=== PATIENT | female | born 1955 | race Caucasian/White ===

== ENCOUNTER 2019-01-16 20:59 | Inpatient (IN) ==
[2019-01-16 23:20] LABS: URINE SOURCE CLEAN CATCH
[2019-01-16 23:26] LABS: BILIRUBIN URINE NEGATIVE (NEGATIVE); BLOOD URINE NEGATIVE (NEGATIVE); COLOR YELLOW; GLUCOSE URINE NEGATIVE (NEGATIVE); KETONE URINE 10 mg/dL (NEGATIVE); LEUKOCYTES URINE NEGATIVE (NEGATIVE); NITRITE URINE NEGATIVE (NEGATIVE); PH URINE 5.5; PROTEIN URINE TRACE mg/dL (NEGATIVE); SP GRAVITY URINE 1.022; TURBIDITY URINE HAZY (CLEAR); UROBILINOGEN URINE 2 mg/dL (NORMAL)
[2019-01-16 23:30] LABS: BASO# 0.11 X1000 (0.0-0.2); BASO% 1.7 % (0.0-0.8); EOS# 0.17 X1000 (0.0-0.7); EOS% 2.7 % (0.0-10.0); HEMATOCRIT 26.2 % (37.0-47.0); HEMOGLOBIN 8.9 g/dL (12.0-16.0); LYMPH# 1.93 X1000 (1.2-3.4); LYMPH% 30.6 % (20.5-51.1); MCH 34.5 PG (27-31); MCV 101.6 FL (81-99); MONO# 0.75 X1000 (0.11-0.59); MONO% 11.9 % (1.7-9.3); MPV 10.2 FL (7.4-10.4); NEUT# 3.34 X1000 (1.4-6.5); NEUT% 53.1 % (42.2-75.2); PLT 112 X1000 (130-400); RBC 2.58 XMIL (4.2-5.4)
[2019-01-16 23:31] LABS: UR EPITHELIAL CELLS <10 /HPF (<10); URINE BACTERIA NEGATIVE /HPF; URINE RBC <10 /HPF (<10); URINE WBC <10 /HPF (<10)
[2019-01-16 23:33] LABS: INR 1.74; PROTIME 20.7 Seconds (11.0-16.0)
[2019-01-16 23:34] LABS: PTT 47.2 Seconds (22.3-41.8)
[2019-01-16 23:43] LABS: URINE CASTS NONE SEEN; URINE CRYSTALS NONE SEEN; URINE SMALL ROUND CELLS NONE SEEN; URINE YEAST PRESENT
[2019-01-17 00:12] LABS: AGAP 13; ALB/GLOB RATIO 0.7; ALBUMIN 3.1 g/dL (3.5-5.0); ALKALINE PHOSPHATASE 105 U/L (32-104); BUN 14 mg/dL (8-22); CALCIUM 8.3 mg/dL (8.8-10.2); CHLORIDE 96 mmol/L (98-107); COSMO 260; CREATININE 0.6 mg/dL (0.5-0.9); ESTIMATED GFR > 60; GLUCOSE 118 mg/dL (70-104); GOT 99 U/L (10-30); GPT 38 U/L (10-36); LIPASE 84 U/L (13-60); POTASSIUM 4.8 mmol/L (3.5-5.1); SODIUM 129 mmol/L (136-145); TCO2 20 mmol/L (25-35); TOTAL BILIRUBIN 1.91 mg/dL (0.20-1.00); TOTAL PROTEIN 7.5 g/dL (6.3-8.3)
[2019-01-17 00:25] LABS: UR AMPHETAMINES QUAL PRESUMPTIVE POSITIVE (NONE DETECT); UR BARBITUATES QUAL NONE DETECTED (NONE DETECT); UR BENZODIAZEPIN QUAL NONE DETECTED (NONE DETECT); UR CANNABINOIDS QUAL NONE DETECTED (NONE DETECT); UR COCAINE QUAL NONE DETECTED (NONE DETECT); UR METHADONE QUAL NONE DETECTED (NONE DETECT); UR OPIATES QUAL NONE DETECTED (NONE DETECT); UR OXYCODONE QUAL NONE DETECTED (NONE DETECT); UR PCP QUAL NONE DETECTED (NONE DETECT)
--- NOTE | 2019-01-17 00:28 | PROVIDER DOCUMENTATION ---
This chart was entered by Jessica Kang Scribe, acting as scribe for Andreina Davenport MD. HPI-Abdominal Pain/GI Problem - General Chief Complaint: Nausea/Vomiting Stated Complaint: VOMITING BLOOD Time Seen by Provider: 01/16/19 21:39 Source: patient Allergies/Adverse Reactions: Patient Allergies Allergy/AdvReac Type Severity Reaction Status Date / Time codeine [Codeine] Allergy Mild RASH Verified 02/22/12 12:59 Penicillins Allergy Mild RASH Verified 02/22/12 13:00 Sulfa (Sulfonamide Allergy Mild RASH Verified 02/22/12 13:00 Antibiotics) [Sulfa(Sulfonamide Antibiotics)] Home Medications: Home Medication List Medication Instructions Recorded Confirmed Last Taken Type LISINOpril [Prinivil] 20 mg PO DAILY 01/17/19 01/17/19 Unknown History - History of Present Illness-ABD Nature of Presenting Problems: pt is a 63 yr old female presenting with 2 week complaint of diffuse abdominal pain, nausea and vomiting. pt reports today she began vomiting blood. pt also complains of itchy, painful rash to upper body x 9months. Abdominal Pain Onset Location: reports: generalized abdomen Pain Radiation: reports: no radiation Quality of Pain: reports: aching Severity in ED: reports: moderate Onset/Duration: reports: other (2weeks) Timing: reports: changing over time Activities at Onset: reports: light activity Exposure to sick contacts?: No Modifying Factors: improves with: coughing (induces vomiting), eating (worsens abdominal pain) Associated Symptoms: reports: cough, nausea, rash, vomiting. denies: fever/chills Last BM: unsure Dark Stools Present?: reports: none noticed Rectal Bleeding: reports: none Rectal Pain: reports: none # of Vomiting Episodes: 5 Emesis Description: reports: red blood Bruising or Bleeding Gums?: No Similar Symptoms Previously?: No Recently seen or treated by another doctor?: No Review of Systems - Adult - REVIEW OF SYSTEMS - ADULT Constitutional: denies: fever, fatique Eyes: reports: no symptoms reported Ears, Nose, Mouth & Throat: reports: no symptoms reported Cardiovascular: denies: chest pain, palpitations, syncope Respiratory: reports: cough. denies: shortness of breath Gastrointestinal: reports: abdominal pain, hematemesis, nausea, vomiting. denies: diarrhea Genitourinary: denies: dysuria, frequency, flank pain Musculoskeletal: reports: no symptoms reported Integumentary: reports: no symptoms reported Neurological: denies: dizziness/vertigo, headache/migraines Psychiatric: reports: no symptoms reported Endocrine: reports: no symptoms reported Hematologic/Lymphatic: reports: no symptoms reported Allergic/Immunologic: reports: no symptoms reported All Other Systems: Reviewed and Negative Past History - Adult - PAST MEDICAL HISTORY-ADULT Review of Records: reports: Nursing Assessment Review, Medications Reviewed, Social history reviewed & non-contributory. Major Childhood Illnesses: reports: denies history Cardiovascular: reports: denies history Respiratory: reports: denies history Gastrointestinal: reports: denies history Obstetrical/Gynecological: reports: denies history Genitourinary: reports: denies history Musculoskeletal: reports: denies history Neurological: reports: denies history Endocrine/Immune: reports: denies history Other Conditions: reports: denies history - IMMUNIZATION STATUS Childhood Immunizations: See Nurse Assessment Flu Vaccine: See Nurse Assessment - FAMILY HISTORY Family History: reviewed, not pertinent - SOCIAL HISTORY Living Situation: family Physical Exam-General - PHYSICAL EXAM-ADULT Initial Vital Signs Reviewed: Yes - CONSTITUTIONAL General Appearance: appears well, alert, no apparent distress - EYES Eyes: PERRL/EOMI - HEAD, EARS, NOSE, MOUTH & THROAT HENMT: normocephalic/atraumatic, moist mucous membranes, dental decay - NECK Neck: non-tender, full range of motion, supple, normal inspection - RESPIRATORY Respiratory: chest non-tender, lungs clear, normal breath sounds - CARDIOVASCULAR Cardiovascular: normal peripheral pulses, tachycardia - GASTROINTESTINAL (ABDOMEN) Abdominal Exam: normal bowel sounds, non tender, soft - LYMPHATIC Lymphatic: no adenopathy - MUSCULOSKELETAL Back Exam: normal inspection, no CVA tenderness, no vertebral tenderness Extremity: normal range of motion, non-tender, normal gait, normal inspection - SKIN Integumentary: normal color, normal turgor, warm/dry - NEUROLOGIC Neurologic: grossly normal, no motor/sensory deficits - PSYCHIATRIC Psych/Mental Status: normal mood/affect Progress - PLAN OF CARE/RESULTS Progress/Plan/Lab Results: Vital Signs - 8 hr 01/16/19 21:13 Temperature 97.6 F Pulse Rate 124 H Respiratory Rate 18 Blood Pressure 90/55 O2 Sat by Pulse Oximetry 98 Patient with multiple different complaints but mostly with complaints of abd pain. CT showing multiple different problems includes concerns for colitis that is either pseudomembranous or infalmmartory. Also has possible cholecytisis with liver involvement. Transaminitis on labs. She has had a few episodes of dark bloody vomiting in the ED. Unknwon cause for this. Hgb is 8.9. I am unsure if this is new or chronic but given hematemesis today will admit. SPoke to Dr Donald hearing aid consultant for hospitalist who accepted patient for admission. Further orders to be placed by their team. Result Diagrams: 01/16/19 23:04 01/16/19 23:04 - CT/MRI 1 CT Study: Abdomen, Pelvis, Thorax Impression: See EMR Report - CONSULTS/PCP/HOSPITALIST Notification #1 *Consult/PCP/Hospitalist*: Dr Donald Time Discussed: 03:09 Consult Disposition: Admit Departure - Departure Date of Disposition Decision: 01/17/19 Time of Disposition Decision: 03:09 DIAGNOSIS: Hematemesis of unknown cause, Abdominal pain, Colitis, Anemia, Transaminitis, Cholecystitis, Left kidney mass Disposition: ADMITTED INPATIENT 09 Certified Medical Emergency: Emergent Condition: Stable - Critical Care Note This patient required my direct & personal management of CC.: No Attestation - Physician/ HILARIO Attestation Patient care was provided by Advanced Practice Provider:: No The physician spent face to face time with patient:: Yes Advanced Practice Provider documentation review:: Supervising physician onsite and consulted in the evaluation and care of this patient. The physician did have a face to face encounter with the patient. This chart was documented by the indicated scribe, (Jessica Kang Scribe) and accurately reflects the services I performed and decisions made by me, Andreina Davenport MD, as attested by the provider's signature.
[2019-01-17] MEDS ORDERED: PROTONIX 80 MG in NS 80 ML IV ONE (03:06)
[2019-01-17] MEDS ORDERED: ZOSYN 3.375 GM in NS 50 ML IV ONE (03:06)
[2019-01-17] MEDS ORDERED: ZOFRAN IV PRN (04:08)
[2019-01-17] MEDS ORDERED: PHENERGAN IV ONE (04:27)
[2019-01-17] MEDS ORDERED: SODIUM CHLORIDE 0.9% INJ ONE (04:27)
[2019-01-17] MEDS: NS 1,000 ML IV SCH ×2 (05:34→18:00)
--- NOTE | 2019-01-17 07:09 | HISTORY AND PHYSICAL ---
PRIMARY CARE PROVIDER: ARIANA Matthew. CHIEF COMPLAINT: Abdominal pain and vomiting up blood. HISTORY OF PRESENT ILLNESS: Ms. Mendoza is a 53-year-old female who reports a past medical history of hypertension and GERD. She reports she has been having some ongoing abdominal pain for the past couple of months and some worsening reflux. She started throwing up blood yesterday. She has thrown up a total of 6 times coffee ground emesis. She was also actively vomiting dark emesis while I was in the room. She also reported episodes of diarrhea last week that had bloody streaks in it but that has since resolved. She felt the blood was due from straining. She has had fever and chills now for a couple of weeks, really no appetite. No cardiac type chest pain. No shortness of breath. No heart palpitations. Workup in the ED with imaging showed questionable cholecystitis, ascites and gastritis, a left kidney mass that recommended a followup MRI. H and H of 8 and 26. Sodium 129 with transaminitis. We will admit her to PVC, continue on IV Protonix drip, consult General Surgery as well as GI. PAST MEDICAL HISTORY: 1. Hypertension. 2. GERD. PAST SURGICAL HISTORY: Denies. FAMILY HISTORY: Denies any heart disease. Her mother is from lung cancer and a maternal grandmother who from breast cancer. SOCIAL HISTORY: She has no children. She states she lived with a man for 18 years and he recently . She has been smoking since the age of 16. She now smokes 1/2 pack per day. She has 2 mixed drinks daily. HOME MEDICATIONS: Lisinopril 20 mg p.o. daily. ALLERGIES: To codeine, causes a rash. Penicillin, rash. Sulfa, rash. REVIEW OF SYSTEMS: Twelve point review of systems complete negative except for those mentioned in the HPI. PHYSICAL EXAMINATION: VITAL SIGNS: Temperature is 97.6 degrees, heart rate 108, respirations 19, blood pressure 119/70, O2 sat 97% on room air. GENERAL: Ms. Mendoza is a pleasant 63-year-old female who was lying on the stretcher initially in no acute distress then she started with vomitus. HEENT: Atraumatic, normocephalic. NECK: Supple. Trachea midline. CVS: S1, S2 appreciated. No murmurs, gallops, rubs noted. RESPIRATORY: Lung sounds clear bilaterally. GI: Soft. It is tender from the mid to right upper quadrant. Positive bowel sounds. LOWER EXTREMITIES: Negative for edema. NEUROLOGICAL: No focal deficits noted. DIAGNOSTICS: Per HPI. LABORATORY DATA: Per HPI. ASSESSMENT AND PLAN: 1. Upper GI bleed. We will continue with IV PPI, IV Protonix drip. We will consult GI. Follow serial H and H's.Continue NPO status. 2. Questionable cholecystitis. We will consult General Surgery. 3. Transaminitis. 4. Ascites seen on imaging. 5. Gastritis. Continue PPI. 6. Left kidney mass. CT imaging recommends follow up with MRI. We will obtain that in the a.m. 7. Hypertension. 8. Tobacco and alcohol use. Continued education on cessation. Further recommendations to follow further evaluation and diagnostic data. Dictated by ARIANA Guadarrama for Felipe Donald MD I have performed a face to face diagnostic evaluation. Labs/ xrays- reviewed. Exam- Chest- clear, CV- regular, Abd- soft. A/P- GI bleed- Admit, IV PPI, NPO, GI consult. Dr. Donald cc: Felipe Donald MD [facility]
[2019-01-17 07:13] LABS: HEMATOCRIT 23.9 % (37.0-47.0); HEMOGLOBIN 8.2 g/dL (12.0-16.0); MCH 35.7 PG (27-31); MCHC 34.3 g/dL (33-37); MCV 103.9 FL (81-99); MPV 10.8 FL (7.4-10.4); RBC 2.3 XMIL (4.2-5.4); WBC 6.19 X1000 (4.8-10.8)
[2019-01-17 07:45] LABS: AGAP 12; ALB/GLOB RATIO 0.7; ALBUMIN 3.1 g/dL (3.5-5.0); ALKALINE PHOSPHATASE 99 U/L (32-104); BUN 18 mg/dL (8-22); CALCIUM 8.7 mg/dL (8.8-10.2); CHLORIDE 100 mmol/L (98-107); COSMO 267; CREATININE 0.6 mg/dL (0.5-0.9); ESTIMATED GFR > 60; GLUCOSE 103 mg/dL (70-104); GOT 98 U/L (10-30); GPT 38 U/L (10-36); POTASSIUM 4.9 mmol/L (3.5-5.1); SODIUM 132 mmol/L (136-145); TCO2 20 mmol/L (25-35); TOTAL BILIRUBIN 2.02 mg/dL (0.20-1.00); TOTAL PROTEIN 7.4 g/dL (6.3-8.3)
--- NOTE | 2019-01-17 08:24 | Diag Imaging Result Doc PS360 ---
EXAM: CT THORAX/ABD/PELVIS W/CON INDICATION: epigastric pain, vomiting blood, smoker TECHNIQUE: This exam was performed using automated exposure control, adjustment of mA or kV according to patient size, and/or use of iterative reconstruction technique. COMPARISON: None. FINDINGS: CHEST: There is minimal lingular scarring. The lungs are grossly clear, otherwise. There is no pleural fluid collection and no pneumothorax. There are a few calcified mediastinal and hilar lymph nodes indicating prior granulomatous disease. There is no evidence of significant lymphadenopathy, otherwise. There is no evidence of acute osseous abnormality involving the chest. ABDOMEN/PELVIS: There is suggestion of mild hepatic steatosis. There is small volume ascites tracking around the liver and layering in the pelvis. There is a calcified stone in the gallbladder lumen and there is suggestion of mild gallbladder wall thickening and pericholecystic fluid. Cholecystitis cannot be excluded. However, this could be, at least in part, due to the adjacent ascites. The spleen, pancreas, and adrenal glands are grossly unremarkable. There are a couple of low dense foci associated with the left kidney with the largest measuring up to 2.4 cm at the inferior left kidney. There is no obvious enhancement. These probably represent cysts containing blood products or proteinaceous debris as they're densities are higher than that of simple fluid. Consider ultrasound follow-up. There are calcifications involving the renal sinuses bilaterally that are probably arterial. The urinary bladder is grossly unremarkable. There is moderate uncomplicated diverticulosis coli. The appendix is normal. The colonic wall appears mildly thickened throughout. This may be due to fatty infiltration of the wall. Mild colitis is also possible. There is also mild low dense thickening of the gastric rugal folds. Consider mild gastritis. IMPRESSION: 1.Small volume ascites. 2.Cholelithiasis with thickening of the gallbladder wall and surrounding fluid. Although this may be due to two the ascites, cholecystitis cannot be excluded. 3.Mild thickening of the colonic wall throughout which may be due to fatty infiltration. Mild colitis is also possible. 4.Mild gastric rugal fold thickening. Consider mild gastritis. 5.A couple of low dense left renal lesions that may represent blood filled or protein filled cysts but are indeterminate. Consider follow-up with ultrasound or nonemergent follow-up with a CT with and without contrast. 6.Other incidental/nonacute findings detailed above. Electronically signed by Kenney Stephen 01/17/2019 8:21 AM
[2019-01-17] MEDS ORDERED: VITAMIN K 10 MG in NS 50 ML IV ONE (08:49)
--- NOTE | 2019-01-17 09:24 | Diag Imaging Result Doc PS360 ---
EXAM: MRI ABDOMEN W/O CONTRAST INDICATION: kidney mass TECHNIQUE: COMPARISON: CT abdomen and pelvis dated 01/17/2019. No prior abdominal MRI is available for comparison. FINDINGS: There is a 2 cm mass at the lower pole of the left kidney that corresponds to the largest low dense lesion seen on the recent CT. It does not exhibit typical fluid signal and is suspicious for a solid mass. Neoplasm cannot be excluded. No IV contrast was administered on this study to confirm this, however. The other low dense lesion seen more superiorly on the prior CT does exhibit fluid signal and is consistent with a cyst. There is trace fluid around the liver and gallbladder. This was also seen on the prior CT. The spleen, visualized pancreas, adrenal glands, and visualized GI tract are grossly unremarkable. IMPRESSION: 1.Findings suspicious for a 2 cm solid mass at the lower left kidney. Please see above discussion. 2.Small volume of fluid tracking around the liver and gallbladder as was also seen on the previous CT. Electronically signed by Kenney Stephen 01/17/2019 9:22 AM
[2019-01-17] MEDS ORDERED: SODIUM CHLORIDE 0.9% INJ SCH (10:30)
[2019-01-17] MEDS: ZOSYN 3.375 GM in NS 50 ML IV SCH ×3 (11:07→21:10)
[2019-01-17] MEDS: PROTONIX IV SCH ×2 (11:07→21:10)
[2019-01-17] MEDS: DEMEROL IV PRN ×2 (11:15→15:42)
[2019-01-17] MEDS ORDERED: CARAFATE LIQUID PO SCH (14:00)
[2019-01-17] MEDS: CARAFATE LIQUID PO SCH ×2 (14:34→21:10)
--- NOTE | 2019-01-17 14:35 | Diag Imaging Result Doc PS360 ---
US ABDOMEN-COMPLETE - 01/17/2019 INDICATION: eval for cirrhosis COMPARISON: MRI 01/17/2019 FINDINGS: The liver is severely fatty with poor penetration. No obvious liver masses. There is trace ascites. There are couple small 3 mm polyps or stones in the gallbladder. No biliary dilation. The common bile duct measures 5 mm. Spleen size is normal. The spleen measures 9.9 x 9 x 4 cm. The pancreas is obscured. The right kidney is normal. In the lower pole of the left kidney, there is an oval hypoechoic nodule. This measures 2 x 1.8 cm. This corresponds with the abnormal signal on the MRI. Aorta, IVC, and main portal vein are patent. IMPRESSION: 1. Severely fatty liver. No signs for cirrhosis. 2. Trace ascites. 3. Hypoechoic nodule in the lower pole of the kidney concerning for renal cell neoplasm. 4. Tiny stones or polyps in the gallbladder. Electronically signed by Buddy Killian 01/17/2019 2:33 PM
[2019-01-17 15:53] LABS: HEMATOCRIT 24.8 % (37.0-47.0); HEMOGLOBIN 8.5 g/dL (12.0-16.0)
--- NOTE | 2019-01-17 19:55 | GASTROENTEROLOGY CONSULTATION ---
DATE: 01/17/2019 REASON FOR CONSULT: Upper GI bleed. HISTORY OF PRESENT ILLNESS: Ms. Mendoza is a 63-year-old female with a history of hypertension, GERD, hiatal hernia, and constipation, who presented to the ER yesterday late in the night complaining of nausea, vomiting which was dark, coffee-ground emesis. She said she had vomited at least 3 to 4 times, and in the ER this morning when she vomited it had blood clots. The patient denied any fever, chills, or shortness of breath. She does have a history of taking Goody powder one pack a day for the last 40 years. She takes ibuprofen two tablets on a daily basis for headaches and joint pains. She drinks 2 glasses of vodka every afternoon. She complained of abdominal pain and mentioned it as cramping pain and rated it as 8. She has been having nausea, vomiting, gagging and choking feeling at all times. She mentioned having EGD with dilation done by Dr. Alarcon in 2016. PAST MEDICAL HISTORY: Hypertension, constipation, GERD, hiatal hernia. PAST SURGICAL HISTORY: Denied any surgeries. ALLERGIES: Codeine, penicillin, and sulfa. SOCIAL HISTORY: She is , has no kids. She is a smoker. She smokes half a pack of cigarettes daily and drinks 2 glasses of vodka every afternoon. She used to smoke pot in the past. REVIEW OF SYSTEMS: As per HPI. Otherwise, 12-point review of systems is negative. PHYSICAL EXAMINATION: Vital signs: Temperature 98.0 degrees, pulse 108, respirations 17, blood pressure 104/59, oxygen saturation 95% on room air. Her weight is 142 pounds, BMI is 23.8 kg/m2. General: She is alert and oriented x3, answers questions appropriately, and is in no acute distress. HEENT: Pale conjunctivae. No icterus. PERRL Neck: Supple. Lungs: Clear to auscultation in the anterior rao. Cardiovascular: Regular rate and rhythm without murmur, rubs, or gallops heard. Abdomen: Soft, mildly distended, generalized tenderness. Active bowel sounds heard in all 4 quadrants. Extremities: No cyanosis, clubbing, or edema. Pedal pulses 2+ present bilaterally. Neurologic: She is alert and oriented x3. Nonfocal. Cranial nerves 2-12 grossly intact. Toxicology reports showed her urine amphetamine screen was presumptive positive. Abdominal MRI showed findings of suspicious 2 cm solid mass in the lower left kidney and small volume of fluid around the liver and the gallbladder. CT of the thorax and the abdomen showed small volume ascites, cholelithiasis with thickening of the gallbladder wall and surrounding fluid, mild thickening of the colonic wall throughout due to fatty infiltration and mild colitis. IMPRESSION AND PLAN: Renal Mass Coffee ground emesis Anemia Melena Cholelithiasis Ascites Nausea/Vomiting Tobacco abuse Alcohol abuse Hypertension Colitis as seen on imaging-last colonoscopy 2-[address] Alarcon. Elevated Liver enzymes, coagulopathy, thrombocytopenia-evaluate for chronic liver disease. PLAN: We will schedule for EGD tomorrow with Dr Jimenez. We have ordered ultrasound imaging for her liver cirrhosis and complete chronic liver disease workup. Patient will be NPO except ice chips. We have started patient on protonix IV 40 mg BID and Carafate 1 gm for her GI bleed.Start Iron and multivitamin for her anemia. The patient's current hemoglobin and hematocrit is 8.2 and 23.9. We will continue to monitor the patient's H & H and and transfuse two units of PRCB's if Hemoglobin is < 7g/dl. She did receive a one-time IV dose of vitamin K 10 mg and also IV fluid Protonix 80 mg in the ER. Discussed the risks, benefits and alternatives of the procedure, patient acknowledges understanding of the plan of care. Further plan of care will be based on the EGD findings.This plan was discussed with Dr. Reardon. Thank you for your consult. Please call us with any further questions or concerns. Dictated by ARIANA Winkler for Matty Reardon MD cc: Matty Reardon MD I have seen and examined the patient myself and I agree with the above plan of care. I have discussed the above plan of care with the patient and family at bedside and all questions were answered. Please call us with any further questions or concerns. Discussed the case with Dr. Amaury Nice. YAJAIRA
[2019-01-17] MEDS: ICAR-C PO SCH (21:10)
[2019-01-17 21:18] LABS: HEMATOCRIT 22.9 % (37.0-47.0); HEMOGLOBIN 7.7 g/dL (12.0-16.0)
--- NOTE | 2019-01-17 23:50 | GENERAL SURGERY CONSULTATION ---
DATE: 01/17/2019 CHIEF COMPLAINT: Hematemesis. REASON FOR CONSULTATION: Evaluation of the gallbladder. HISTORY OF PRESENT ILLNESS: A 63-year-old female who has ongoing tobacco abuse. She has a history of gastritis. She drinks alcohol daily and uses excessive BC Powders. She did develop some epigastric abdominal discomfort and both dark and red blood emesis. She came to the ER where CT scan was obtained that showed changes of her gallbladder concerning for possible cholecystitis, some ascites, rugal fold thickening, colonic wall thickening, as well as indeterminate liver lesions. She has been started on a PPI drip, made NPO. She has been hemodynamically stable. MEDICAL HISTORY: As noted in her HPI, with addition of hypertension. SURGICAL HISTORY: Negative. SOCIAL HISTORY: She smokes a pack a day, drinks several drinks a day. She denies illicit's, was positive for amphetamine. FAMILY HISTORY: Reviewed. Negative for GI cancer. REVIEW OF SYSTEMS: A 10-point review of systems was negative other than what is mentioned in the HPI. IMAGING: Abdominal ultrasound shows tiny gallstones versus polyp, trace ascites, fatty liver, and a renal lesion concerning for possible neoplasm. CT scan as noted in the HPI. Abdominal MRI shows nonspecific fluid and renal mass. PHYSICAL EXAMINATION: She is afebrile. Pulse has been in the low 100s. Blood pressure has been 100s to 120s. Oxygen saturation is high 90s.General: She is chronically ill-appearing, but in no acute distress. HEENT: No scleral icterus. No cervical mass. Cardiovascular: Sinus tachycardia. Pulmonary: No increased work of breathing, but does have some coarse rhonchi. Abdomen: Soft. Mild tenderness, but no peritonitis in the upper quadrants of her abdomen. No obvious fluid wave. No varicosities. Integument: Warm and dry without jaundice. Psychiatric: Appropriate affect. Neurologic: No gross deficits. Musculoskeletal: Diffuse muscle atrophy. Lymphatic: No cervical, axillary, or inguinal adenopathy. LABORATORY DATA: White count 6, hematocrit has been as low as 23, but was 26 on admission. Platelets low 100s, 112 to 100. Creatinine 0.6, bilirubin is elevated up to 2.02. AST and ALT are mildly elevated. Alkaline phosphatase is mildly elevated. Troponin negative. Lipase 84. Leukocytes and nitrites in her urine are negative. UDS is positive for amphetamine. ASSESSMENT AND PLAN: This is a 63-year-old female with upper gastrointestinal bleed. She is planned for endoscopy. On exam and her history, is not consistent with gallbladder etiology. I suspect that this may be changes in the setting of adjacent ascites. I do have a high suspicion that she may have underlying cirrhosis or hepatic disease given her multiple risk factors. Dr. Reardon is following. We will keep her on PPI and we will follow peripherally, but no plan for cholecystectomy at this juncture. cc: Isabell Nice MD
[2019-01-18] MEDS: CARAFATE LIQUID PO SCH ×2 (02:35→07:44)
[2019-01-18] MEDS: NS 1,000 ML IV SCH ×2 (03:15→17:04)
[2019-01-18] MEDS: ZOSYN 3.375 GM in NS 50 ML IV SCH ×4 (03:15→22:22)
[2019-01-18 06:32] LABS: BASO# 0.06 X1000 (0.0-0.2); BASO% 1.2 % (0.0-0.8); EOS# 0.28 X1000 (0.0-0.7); EOS% 5.7 % (0.0-10.0); HEMOGLOBIN 7.5 g/dL (12.0-16.0); LYMPH# 1.83 X1000 (1.2-3.4); LYMPH% 37.6 % (20.5-51.1); MCHC 34.1 g/dL (33-37); MCV 102.8 FL (81-99); MONO# 0.46 X1000 (0.11-0.59); MONO% 9.4 % (1.7-9.3); MPV 10.6 FL (7.4-10.4); NEUT# 2.24 X1000 (1.4-6.5); NEUT% 46.1 % (42.2-75.2); PLT 103 X1000 (130-400); RBC 2.14 XMIL (4.2-5.4); RDW 16.5 % (11.5-14.5); WBC 4.87 X1000 (4.8-10.8)
[2019-01-18 07:09] LABS: AGAP 7; ALB/GLOB RATIO 0.7; ALBUMIN 2.6 g/dL (3.5-5.0); ALKALINE PHOSPHATASE 78 U/L (32-104); BUN 19 mg/dL (8-22); CHLORIDE 103 mmol/L (98-107); COSMO 266; CREATININE 0.6 mg/dL (0.5-0.9); ESTIMATED GFR > 60; GLUCOSE 80 mg/dL (70-104); GOT 105 U/L (10-30); GPT 36 U/L (10-36); POTASSIUM 3.9 mmol/L (3.5-5.1); SODIUM 132 mmol/L (136-145); TCO2 22 mmol/L (25-35); TOTAL BILIRUBIN 3.35 mg/dL (0.20-1.00); TOTAL PROTEIN 6.5 g/dL (6.3-8.3)
[2019-01-18] MEDS: PROTONIX IV SCH ×2 (07:53→09:07)
[2019-01-18] MEDS: DEMEROL IV PRN ×3 (07:53→22:22)
[2019-01-18] MEDS ORDERED: PROTONIX PO SCH (08:00)
[2019-01-18] MEDS ORDERED: DIPRIVAN 1% ONE (08:57)
--- NOTE | 2019-01-18 08:59 | PROGRESS NOTE ---
DATE: 01/18/2019 SUBJECTIVE: This patient states that she feels better compared with yesterday. No acute events overnight. She is still complaining of generalized abdominal pain, especially in the right upper quadrant. She is scheduled to get an upper endoscopy today. OBJECTIVE: Vital Signs: Temperature 98.1 degrees, pulse 94, respiratory rate 12, blood pressure 118/57, oxygen saturation 100% on room air. HEENT: Head normocephalic. No trauma. PERRLA. Neck: Supple. No JVD. No masses. Central trachea. Poor dentition. Chest: Clear to auscultation. No wheezing. No rales. Cardiovascular: Regular rate and rhythm. Abdomen: Soft. Generalized tenderness to palpation mostly at the level of the right upper quadrant and epigastric area. No signs of peritoneal irritation. No rebound. Extremities: No edema, no clubbing, no cyanosis. Neurologic: Patient is alert. She is oriented x3. No focal deficits. LABORATORY: WBC 4.8, hemoglobin 7.5, hematocrit 22, platelet 103,000. Sodium 132, potassium 3.9, chloride 103, bicarbonate 22, BUN 19, creatinine 0.6, glucose 80, calcium 8, total bilirubin 3.3, AST 105, ALT 36, alkaline phosphatase 78, albumin 2.6. Abdomen ultrasound showed severely fatty liver. No signs of cirrhosis. Trace ascites, hypoechoic nodule in the lower pole of the kidney concerning for renal cell neoplasm. ASSESSMENT AND PLAN: 1. Upper gastrointestinal bleed, continue with proton pump inhibitor. She is going for an upper endoscopy today. Gastroenterology Department on board. Hemoglobin and hematocrit stable. 2. Questionable cholecystitis. Already evaluated by surgery department. They will monitor for now. Probably, she is not having any issues with the gallbladder. 3. Transaminitis. She does have severe fatty liver infiltration. She has a history of alcohol abuse. I will monitor for now. GI on board. 4. Ascites. Will monitor. 5. Gastritis. Continue proton pump inhibitors. She will have an endoscopy today. 6. Left kidney mass. CT scan and a kidney ultrasound showed a left kidney mass that is concerning for malignancy. I have consulted the urology department to evaluate this patient. 7. Hypertension, stable. 8. Tobacco use and alcohol use. This patient has been highly advised against tobacco use. Will continue with daily cessation education. cc: Orlando Gonzalez MD
[2019-01-18] MEDS ORDERED: XYLOCAINE-MPF 2% ONE (09:00)
[2019-01-18] MEDS: ICAR-C PO SCH ×2 (09:06→20:28)
[2019-01-18] MEDS: CENTRUM SILVER PO SCH (09:06)
--- NOTE | 2019-01-18 09:26 | ENDOSCOPY OPERATIVE NOTE ---
[facility] ENDOSCOPY OPERATIVE NOTE , PATIENT: Irene Mendoza ADMISSION DATE: 01/18/2019 MR#: [id number] : 1955 [id number] EGD PROCEDURE REPORT PROCEDURE DATE: 01/18/2019 SURGEON: Himanshu Jimenez MD STATUS: inpatient METALLURGICAL ENGINEER: PREOPERATIVE DIAGNOSIS: The patient is a 63 yr old female here for an EGD due to hematemesis, melena , and anemia. PROCEDURE PERFORMED: EGD, diagnostic MEDICATIONS: Per Anesthesia TOPICAL ANESTHETIC: none CONSENT: The patient understands the risks and benefits of the procedure and understands that these r isks include, but are not limited to: sedation, allergic reaction, infection, perforation and/or bleeding. Alternative means of evaluation and treatment include, among others: physical exam, x-rays, and/or surgical intervention. The patient elects to proceed with this endoscopic procedure. HISORY AND PHYSICAL: 01/18/2019 DESCRIPTION OF PROCEDURE: During intra-op preparation period all mechanical and medical equipment was checked for proper function. Hand hygiene and appropriate measures for infection prevention was taken. After the risks, benefits and alternatives of the procedure were thoroughly explained, Informed consent was verified, confirmed and timeout was successfully executed by the treatment team. The patient was anesthetized with topical anesthesia and the [id number] ([id number]) endoscope was introduced through the mouth and advanced to the second portion of the duoden um. Retroflexion was performed in the stomach and revealed no abnormalities. The gastroscope was then slowly withdraw n and removed. ESOPHAGUS: A Schatzki ring was found at the gastroesophageal junction and was widely open. A single ulcer ranging between 3-5 mm in size was found at the gastroesophageal junction with slight oozing of blood. STOMACH: Mild portal hypertensive gastropathy was found. DUODENUM: The duodenum was normal. SPECIMENS REMOVED: No ADVERSE EVENTS: There were no complications. POSTOPERATIVE DIAGNOSIS: ESOPHAGUS: A Schatzki ring was found at the gastroesophageal junction and was widely open. A single ulcer ranging between 3-5 mm in size was found at the gastroesophageal junction with slight oozing of blood. STOMACH: Mild portal hypertensive gastropathy was found suggestive of portal hypertension DUODENUM: The duodenum was normal. RECOMMENDATIONS: Start cardiac diet Transition PPI to PO BID Avoid NSAIDs/ASA Complete alcohol cessation Will follow with you REPEAT EXAM: Himanshu Jimenez MD eSigned: Himanshu Jimenez MD 01/18/2019 9:25 AM cc: PATIENT NAME: Gayla Mendozaneftaly Martinez MR#: [id number]
[2019-01-18 12:46] LABS: HEPATITIS PROFILE ACUTE SEE COMMENTS
[2019-01-18] MEDS: PROTONIX PO SCH (20:28)
[2019-01-19] MEDS: NS 1,000 ML IV SCH (04:58)
[2019-01-19] MEDS: ZOSYN 3.375 GM in NS 50 ML IV SCH (04:58)
[2019-01-19] MEDS: PROTONIX PO SCH ×3 (06:32→08:54)
[2019-01-19 06:33] LABS: BASO% 2.1 % (0.0-0.8); EOS# 0.29 X1000 (0.0-0.7); EOS% 6.1 % (0.0-10.0); HEMATOCRIT 23.2 % (37.0-47.0); HEMOGLOBIN 7.7 g/dL (12.0-16.0); LYMPH# 1.69 X1000 (1.2-3.4); LYMPH% 35.8 % (20.5-51.1); MCH 34.5 PG (27-31); MCHC 33.2 g/dL (33-37); MONO# 0.51 X1000 (0.11-0.59); MONO% 10.8 % (1.7-9.3); MPV 10.4 FL (7.4-10.4); NEUT# 2.13 X1000 (1.4-6.5); NEUT% 45.2 % (42.2-75.2); PLT 109 X1000 (130-400); RBC 2.23 XMIL (4.2-5.4); RDW 16.5 % (11.5-14.5); WBC 4.72 X1000 (4.8-10.8)
[2019-01-19] MEDS ORDERED: CALMOSEPTINE OINTMENT TOP PRN (06:40)
[2019-01-19 06:45] LABS: AGAP 9; ALB/GLOB RATIO 0.6; ALBUMIN 2.8 g/dL (3.5-5.0); ALKALINE PHOSPHATASE 97 U/L (32-104); BUN 9 mg/dL (8-22); CALCIUM 7.4 mg/dL (8.8-10.2); CHLORIDE 103 mmol/L (98-107); COSMO 265; CREATININE 0.6 mg/dL (0.5-0.9); ESTIMATED GFR > 60; GLUCOSE 96 mg/dL (70-104); GOT 100 U/L (10-30); GPT 38 U/L (10-36); POTASSIUM 3.7 mmol/L (3.5-5.1); SODIUM 133 mmol/L (136-145); TCO2 21 mmol/L (25-35); TOTAL BILIRUBIN 2.21 mg/dL (0.20-1.00); TOTAL PROTEIN 7.2 g/dL (6.3-8.3)
[2019-01-19 08:16] VITALS: BP 135/58
[2019-01-19] MEDS: ICAR-C PO SCH (08:53)
[2019-01-19] MEDS: DEMEROL IV PRN (08:53)
[2019-01-19] MEDS: CENTRUM SILVER PO SCH (08:54)
--- NOTE | 2019-01-19 09:47 | PROGRESS NOTE ---
DATE: 01/19/2019 SUBJECTIVE: The patient feels better compared with yesterday. She is tolerating p.o. She had an ulcer at the level of the gastroesophageal junction that was oozing some blood, hemoglobin and hematocrit stable compared with yesterday. I will continue to monitor. Hopefully, this patient can be discharged in the next 24 hours pending Urology Department recommendations and final recommendations by Gastroenterology Department. OBJECTIVE: Vital Signs: Temperature 97.9 degrees, pulse 102, respiratory rate 18, blood pressure 135/58, oxygen saturation 91% on room air. HEENT: Head normocephalic, no trauma. PERRLA. Neck: Supple. No JVD. No masses. Central trachea. Poor dentition. Chest: Clear to auscultation. No wheezing. No rales. Cardiovascular: RRR. Abdomen: Soft, generalized tenderness to palpation mostly at the level of the right upper quadrant and epigastric area. No signs of peritoneal irritation. No rebound. Extremities: No edema, no clubbing, no cyanosis. Neurological examination: The patient is alert. She is oriented x3. No focal deficits. Skin: She does have some spider angiomata mostly at the level of the thoracic area. LABORATORY: WBC 4.7, hemoglobin 7.7, hematocrit 23.2, platelets 109. Sodium 133, potassium 3.7, chloride 103, bicarbonate 21. BUN 9, creatinine 0.6, glucose 96, calcium 7.4, total bilirubin 2.2. AST 100, ALT 38, alkaline phosphatase 97, albumin 2.8. ASSESSMENT AND PLAN: 1. Upper gastrointestinal bleed, status post endoscopy that showed an ulcer at the level of the gastroesophageal junction that was oozing some blood. She seems to be more stable. Hemoglobin and hematocrit stable today. I will wait for the final recommendations of Gastroenterology Department. Continue with proton pump inhibitor. 2. Questionable cholecystitis. Surgery Department already evaluated this patient and it looks like she is not having issues with her gallbladder. No plan for surgery at this moment. 3. Transaminitis. She does have severe fatty liver infiltration by ultrasound, but we do believe also this patient has liver cirrhosis based on the physical exam and the findings during the endoscopy. It has been described that this patient has portal hypertensive gastropathy. 4. Likely liver cirrhosis as above. 5. Ascites. We will monitor for now. 6. Left kidney mass. CT scan and kidney ultrasound showed left kidney mass that is concerning for malignancy. Urology Department has been consulted pending recommendations. 7. Hypertension is stable. 8. Tobacco use and alcohol abuse. I had a really large conversation with this patient about both alcohol and tobacco use, and I was really grace with her. I told her that she needs to stop completely smoking and drinking. She already has liver cirrhosis. She seems to understand and she will quit smoking and drinking. cc: Orlando Gonzalez MD
--- NOTE | 2019-01-19 10:26 | PROVIDER PROGRESS NOTE ---
Progress Note S: No acute overnight events. Patient denies any rectal bleeding. No N/V/F, CP, SOB. She is tolerating PO. O: Last Vital Signs Temp 97.9 F 01/19/19 08:00 Pulse 104 H 01/19/19 10:01 Resp 18 01/19/19 08:00 BP 135/58 01/19/19 08:00 Pulse Ox 91 L 01/19/19 08:00 Height 5 ft 5 in Weight 137 lb 7 oz GEN: awake, alert, NAD HEENT: anicteric, MMM NECK: supple, no JVD PULM: CTAB, no wheezing CV: mild tachycardia, no murmurs ABD: soft NT/ND, BS present EXT: no cce NEURO: nonfocal LABS: 01/19/19 01/19/19 04:44 04:44 WBC 4.72 L Hgb 7.7 L Plt Count 109 L Sodium 133 L Potassium 3.7 Chloride 103 Carbon Dioxide 21 L BUN 9 D Creatinine 0.6 Total Bilirubin 2.21 H AST 100 H ALT 38 H Alkaline Phosphatase 97 Total Protein 7.2 Albumin 2.8 L EGD 01/18/2019 ESOPHAGUS: A Schatzki ring was found at the gastroesophageal junction and was widely open. A single ulcer ranging between 3-5 mm in size was found at the gastroesophageal junction with slight oozing of blood. STOMACH: Mild portal hypertensive gastropathy was found. DUODENUM: The duodenum was normal. A/P: Ms. Irene Mendoza is a 63 year old woman with compensated ETOH cirrhosis who presented with hematemesis and acute blood loss anemia found to have widely patent Schatzki's ring, small esophageal ulcer with stigmata of recent bleeding, and mild PHG. No PUD or varices. Hgb has been stable. Her ulcer is likely from copious NSAID use. # Bleeding esophageal ulcer: continue PPI PO BID for 3 months; avoid NSAIDs # Anemia: macrocytic: stable hgb # ETOH cirrhosis: compensated: complete ETOH cessation encouraged; recommend MVI, thiamine, folic acid # Thrombocytopenia: stable Follow-up with Dr. Alarcon upon discharge. Please call with questions. Will sign off.
--- NOTE | 2019-01-19 14:58 | DISCHARGE SUMMARY ---
ADMISSION DATE: 01/17/2019 DISCHARGE DATE: 01/19/2019 DISCHARGE DIAGNOSES: 1. Upper gastrointestinal bleed, status post endoscopy that showed a gastroesophageal junction ulcer that was oozing blood. 2. Transaminitis, likely due to liver cirrhosis. 3. Likely liver cirrhosis, ultrasound showed severe fatty liver. 4. Ascites. 5. Left kidney mass. 6. Hypertension. 7. Tobacco use. 8. Alcohol abuse. PROCEDURES PERFORMED: 1. Chest, abdomen and pelvis CT scan dated 01/16/2019: Impression: 1. Small ascites, cholelithiasis with thickening of the gallbladder wall and surrounding fluid. 2. Mild thickening of the colonic wall throughout, which may be due to fatty infiltration. 3. Mild gastric rugal fold thickening. 4. A couple of low-dense left renal lesions that may represent blood field or protein field cysts, but are indeterminate. 2. Abdominal MRI dated 01/17/2019: Impression: Findings suspicious for 2 cm solid mass at the lower left kidney, small volume of fluid tracking around the liver and gallbladder as was also seen on the previous CT scan. 3. Abdominal ultrasound dated 01/17/2019: Impression: 1. Severe fatty liver, no signs for cirrhosis, trace ascites. 2. Hypoechoic nodule in the lower pole of the kidney concerning for renal cell neoplasm, tiny stones or polyps in the gallbladder. CONSULTS: 1. Surgery Department, Dr. Nice. 2. Gastroenterology Department, Dr. Jimenez. 3. Urology Department, Dr. Horner. HOSPITAL COURSE: A 63-year-old female with a past medical history of hypertension, GERD, alcohol and tobacco use, admitted on 01/17/2019. Reported that she has been having some ongoing abdominal pain for the past couple months and worsening reflux, it looks like she started vomiting some blood x6, coffee-grounds emesis. She has had some fever and chills for a couple weeks and really no appetite. No cardiac type chest pain. No shortness of breath. No heart palpitations. Workup in the emergency department showed questionable cholecystitis, ascites and gastritis, and left kidney mass that they recommend to follow with some images. Hemoglobin and hematocrit were 8 and 26, sodium 125 with transaminitis. She was admitted. She was placed on a Protonix drip. Gastroenterology Department took this patient to the operating room and they did an endoscopy that showed an ulcer at the level of the gastroesophageal junction that was oozing some blood, also they stated that she has mild portal hypertensive gastropathy that could be related to liver cirrhosis. After the procedure her hemoglobin and hematocrit have been stable. She does have signs of cirrhosis including spider angiomata and alcohol abuse, on top of the EGD findings. Surgery Department evaluated this patient and they believed that the abdominal pain was not related to gallbladder etiology, so no plan for cholecystectomy was planned at that time. Her pain has been getting better, though. We do believe the elevated LFTs and thrombocytopenia is related to her liver problems and alcohol abuse. Dr. Horner evaluated this patient. Per the patient, he will follow this patient up as an outpatient. She will need to call for an appointment. Also, follow up with Dr. Alarcon as an outpatient who is her primary visual educator. She seems to be stable. She is tolerating p.o. She wants to go home. PHYSICAL EXAMINATION: Vital Signs: Temperature 97.9 degrees, pulse 102, respiratory rate 18, blood pressure 135/58, oxygen saturation 91% on room air. HEENT: Head normocephalic, no trauma. PERRLA. Neck: Supple. No JVD. No masses. Central trachea. Chest: Clear to auscultation. No wheezing. No rales. Abdomen: Soft. She does have some generalized tenderness to palpation but mostly at the level of the right upper and epigastric area. No signs of peritoneal irritation. No rebound. Extremities: No edema, no clubbing, no cyanosis. Neurological: The patient is alert. She is oriented x3. No focal deficit. Skin: She does have some spider angiomata, mostly at the level of the thoracic area. LABORATORY: WBC 4.7, hemoglobin 7.7, hematocrit 23.2, platelets 109,000. Sodium 133, potassium 3.7, chloride 103, bicarbonate 21, BUN 9, creatinine 0.6, glucose 96, calcium 7.4, total bilirubin 2.2, AST 100, ALT 38, alkaline phosphatase 97, albumin 2.8. DISCHARGE MEDICATIONS: Icar-C 1 tablet p.o. b.i.d., lisinopril 20 mg p.o. daily, pantoprazole 40 mg p.o. b.i.d. for 1 month and then daily for 2 more months to complete 3 months of treatment, and multivitamin/Centrum Silver 1 tablet p.o. daily. I had a really large conversation about alcohol abuse and all the findings that we have had during this hospitalization. She seems to understand and she is willing to quit drinking. TIME SPENT: Time discharging this patient was 35 minutes. cc: Orlando Gonzalez MD
== END 2019-01-19 12:25 | disposition home or self-care (01) | DRG 378 ==
LOC: ED 20:59 → EDIPHOLD 01-17 04:58 → SUATTDRO 01-17 04:58 → 2N 01-17 08:16
PROVIDERS: ATTEND Internal Medicine

== ENCOUNTER 2019-02-20 17:05 | Inpatient (IN) ==
[2019-02-20 17:46] LABS: ESTIMATED GFR > 60
[2019-02-20 17:49] LABS: AGAP 14; ALB/GLOB RATIO 0.7; ALBUMIN 3.3 g/dL (3.5-5.0); ALKALINE PHOSPHATASE 84 U/L (32-104); BUN 6 mg/dL (8-22); CHLORIDE 88 mmol/L (98-107); COSMO 250; CREATININE 0.8 mg/dL (0.5-0.9); GLUCOSE 139 mg/dL (70-104); GOT 61 U/L (10-30); GPT 22 U/L (10-36); LIPASE 56 U/L (13-60); POTASSIUM 3.3 mmol/L (3.5-5.1); SODIUM 124 mmol/L (136-145); TCO2 22 mmol/L (25-35); TOTAL BILIRUBIN 2.79 mg/dL (0.20-1.00); TOTAL PROTEIN 7.9 g/dL (6.3-8.3)
[2019-02-20 17:59] LABS: BASO# 0.07 X1000 (0.0-0.2); BASO% 1.3 % (0.0-0.8); EOS# 0.11 X1000 (0.0-0.7); EOS% 2.1 % (0.0-10.0); HEMATOCRIT 27.3 % (37.0-47.0); HEMOGLOBIN 9.3 g/dL (12.0-16.0); LYMPH# 1.65 X1000 (1.2-3.4); LYMPH% 31.6 % (20.5-51.1); MCH 34.6 PG (27-31); MCHC 34.1 g/dL (33-37); MCV 101.5 FL (81-99); MONO# 0.62 X1000 (0.11-0.59); MONO% 11.9 % (1.7-9.3); MPV 9.1 FL (7.4-10.4); NEUT# 2.77 X1000 (1.4-6.5); NEUT% 53.1 % (42.2-75.2); PLT 144 X1000 (130-400); RBC 2.69 XMIL (4.2-5.4); RDW 14.4 % (11.5-14.5); WBC 5.22 X1000 (4.8-10.8)
--- NOTE | 2019-02-20 18:44 | PROVIDER DOCUMENTATION ---
HPI-Abdominal Pain/GI Problem - General Chief Complaint: Abdominal Pain Stated Complaint: "ENLARGED INTESTINES" DR REFERRAL Time Seen by Provider: 02/20/19 17:31 Source: patient Allergies/Adverse Reactions: Patient Allergies Allergy/AdvReac Type Severity Reaction Status Date / Time codeine [Codeine] Allergy Mild RASH Verified 02/22/12 12:59 Penicillins Allergy Mild RASH Verified 02/22/12 13:00 Sulfa (Sulfonamide Allergy Mild RASH Verified 02/22/12 13:00 Antibiotics) [Sulfa(Sulfonamide Antibiotics)] Home Medications: Home Medication List Medication Instructions Recorded Confirmed Last Taken Type LISINOpril [Prinivil] 20 mg PO DAILY 01/17/19 01/17/19 Unknown History Iron Carbonyl/Ascorbic Acid 1 ea PO BID #60 tab 01/19/19 Unknown Rx [Icar-C] Multivitamins/Minerals [Centrum 1 ea PO DAILY #100 tab 01/19/19 Unknown Rx Silver] Pantoprazole [Protonix] 40 mg PO BID #120 tab 01/19/19 Unknown Rx - History of Present Illness-ABD Nature of Presenting Problems: 63 YOF PRESENTS WITH REPORTS OF BEING SENT BY PCP FOR BOWEL OBSTRUCTION, HOWEVER OUTPATIENT IMAGING IS UNAVAILABLE. SHE REPORTS N/V, LAST BM WAS 4 DAYS AGO, ABDOMINAL PAIN. DENIES FEVER, CHILLS, SOB, CP Abdominal Pain Onset Location: reports: generalized abdomen Pain Radiation: reports: no radiation Quality of Pain: reports: none Severity in ED: reports: moderate Onset/Duration: reports: 1 week ago Timing: reports: still present Activities at Onset: reports: none Exposure to sick contacts?: No Modifying Factors: improves with: nothing Associated Symptoms: reports: nausea, vomiting Last BM: 4 days ago Dark Stools Present?: reports: none noticed Rectal Bleeding: reports: none Rectal Pain: reports: none Bruising or Bleeding Gums?: No Similar Symptoms Previously?: No Recently seen or treated by another doctor?: Yes Review of Systems - Adult - REVIEW OF SYSTEMS - ADULT Constitutional: reports: no symptoms reported. denies: see HPI, chills, fever, fatique, night sweats, weight gain, weight loss, other Eyes: reports: no symptoms reported. denies: see HPI, discharge, dry eyes, decreased vision, blurred vision, double vision, eye pain, redness, other Ears, Nose, Mouth & Throat: reports: no symptoms reported. denies: see HPI, ear discharge, ear pain, hearing loss, tinnitus, epistaxis, sinus problem, nose pain, loose teeth, mouth/dental pain, mouth swelling, hoarseness, throat pain, throat swelling, other Cardiovascular: reports: no symptoms reported. denies: see HPI, chest pain, edema, heart murmur, irregular heart rate, orthopnea, palpitations, poor circulation, PND, syncope, other Respiratory: reports: no symptoms reported. denies: see HPI, chronic cough, cough, dyspnea on exertion, excessive sputum production, hemoptysis, pleurisy, shortness of breath, wheezing, other Gastrointestinal: reports: see HPI, abdominal pain, nausea, vomiting. denies: no symptoms reported, hematemesis, constipation, diarrhea, difficulty swallowing, frequent heartburn, poor appetite, rectal bleeding, other Genitourinary: reports: no symptoms reported. denies: see HPI, dysuria, discharge, frequency, flank pain, frequent UTI's, hematuria, hesitency, incontin ence, urinary retention, urgency, other Musculoskeletal: reports: no symptoms reported. denies: see HPI, bone pain, back pain, frequent leg cramps, joint pain, joint swelling, muscle aches, muscle weakness, neck pain, other Integumentary: reports: no symptoms reported. denies: see HPI, hives, hair loss, itching, mole changes, nail changes, rash, skin sores/ulcer, skin thickening, other Neurological: reports: no symptoms reported. denies: see HPI, ataxia, dizziness/vertigo, headache/migraines, loss of balance, numbness, paresthesia, seizure, slurred speech, syncope, tremors, other Psychiatric: reports: no symptoms reported. denies: see HPI, anxiety, anti- depressant use, alcohol/drug dependence, depression, emotional problems, insomnia, panic attacks, suicidal thoughts, other Endocrine: reports: no symptoms reported. denies: see HPI, change in skin pigment, excessive sweating, goiter, cold intolerance, heat intolerance, increased hunger, increased thirst, polyuria, other Hematologic/Lymphatic: reports: no symptoms reported. denies: see HPI, blood clots, easy bruising, low blood count, lymphedema, prolonged bleeding, swollen lymph nodes, transfusions, other Allergic/Immunologic: reports: no symptoms reported. denies: see HPI, allergic reactions, allergic rhinitis, asthma, eczema, food allergy, frequent infections, hay fever, hives, positive PPD, urticaria, other Past History - Adult - PAST MEDICAL HISTORY-ADULT Review of Records: reports: Nursing Assessment Review, Social history reviewed & non-contributory. Physical Exam-General - PHYSICAL EXAM-ADULT Initial Vital Signs Reviewed: Yes - CONSTITUTIONAL General Appearance: alert, no apparent distress - EYES Eyes: PERRL/EOMI, pink conjunctivae - HEAD, EARS, NOSE, MOUTH & THROAT HENMT: normocephalic/atraumatic, moist mucous membranes, normal ENT inspection - NECK Neck: non-tender, full range of motion, supple - RESPIRATORY Respiratory: chest non-tender, lungs clear - CARDIOVASCULAR Cardiovascular: normal peripheral pulses, regular rate, rhythm - GASTROINTESTINAL (ABDOMEN) Abdominal Exam: soft, distended, tenderness - LYMPHATIC Lymphatic: no adenopathy - MUSCULOSKELETAL Back Exam: normal inspection, no CVA tenderness, no vertebral tenderness Extremity: normal range of motion, non-tender, normal gait, normal inspection Peripheral Pulses: radial (R): 2+, radial (L): 2+ - SKIN Integumentary: normal turgor, warm/dry - NEUROLOGIC Neurologic: grossly normal - PSYCHIATRIC Psych/Mental Status: normal mood/affect, oriented x 3 Progress - PLAN OF CARE/RESULTS Progress/Plan/Lab Results: Vital Signs - 8 hr 02/20/19 17:10 02/20/19 18:21 Temperature 98.1 F 97.6 F Pulse Rate 112 H 102 H Respiratory Rate 18 18 Blood Pressure 149/72 128/68 O2 Sat by Pulse Oximetry 100 96 Laboratory Results - last 24 hr 02/20/19 02/20/19 17:17 17:17 WBC 5.22 RBC 2.69 L Hgb 9.3 L Hct 27.3 L MCV 101.5 H MCH 34.6 H MCHC 34.1 RDW Std Deviation 14.4 Plt Count 144 MPV 9.1 Immature Gran % (Auto) 0.0 Neut % (Auto) 53.1 Lymph % (Auto) 31.6 [facility] % (Auto) 11.9 H Eos % (Auto) 2.1 Baso % (Auto) 1.3 H Immature Gran # (Auto) 0.00 Neut # (Auto) 2.77 Lymph # (Auto) 1.65 [facility] # (Auto) 0.62 H Eos # (Auto) 0.11 Baso # (Auto) 0.07 Sodium 124 L Potassium 3.3 L Chloride 88 L Carbon Dioxide 22 L Anion Gap 14 BUN 6 L Creatinine 0.8 Estimated GFR/1.73 m2 > 60 BUN/Creatinine Ratio 8 Glucose 139 H Calculated Osmolality 250 Calcium 9.0 Total Bilirubin 2.79 H AST 61 H ALT 22 Alkaline Phosphatase 84 Total Protein 7.9 Albumin 3.3 L Globulin 4.6 Albumin/Globulin Ratio 0.7 Lipase 56 Orders Category Date Time Status Misc. NRSG Communication Order DIRECTED Care 02/20/19 17:31 Active NPO Diet 02/20/19 17:[address] ABD/PELVIS W/IV CONT ONLY [CT] Stat Exams 02/20/19 18:40 Ordered CBC WITH DIFF [HEME] Stat Lab 02/20/19 17:17 Completed COMPREHENSIVE METABOLIC PANEL [CHEM] Stat Lab 02/20/19 17:17 Completed LIPASE [CHEM] Stat Lab 02/20/19 17:17 Completed URINALYSIS [URINALYSIS] Stat Lab 02/20/19 17:15 Uncollected Abd Pain/OB <20 weeks Stat Oth 02/20/19 17:15 Ordered Result Diagrams: 02/20/19 17:17 02/20/19 17:17 - CONSULTS/PCP/HOSPITALIST Notification #1 *Consult/PCP/Hospitalist*: DR. VILLALBA Time Discussed: 21:41 Consult Disposition: Admit Departure - Departure Date of Disposition Decision: 02/20/19 Time of Disposition Decision: 21:41 DIAGNOSIS: Hyponatremia, Ascites, Cirrhosis, Nausea & vomiting Disposition: ADMITTED INPATIENT 09 Certified Medical Emergency: Emergent Condition: Stable Referrals and Follow-Ups: Natanael Ochoa CRNP [Primary Care Provider] - - Critical Care Note This patient required my direct & personal management of CC.: No Attestation - Physician/ HILARIO Attestation Patient care was provided by Advanced Practice Provider:: Yes Advanced Practice Provider:: Brielle Beltran Advanced Practice Provider documentation review:: The Mid-level provider documentation, treatment plan and medical decision making was reviewed by the physician who agrees with all treatment and medical decision making by the MLP. The physician spent face to face time with patient:: No Advanced Practice Provider documentation review:: Supervising physician onsite and consulted in the evaluation and care of this patient. The physician did not have a face to face encounter with the patient.
[2019-02-20 19:38] LABS: URINE SOURCE CLEAN CATCH
[2019-02-20 19:44] LABS: BILIRUBIN URINE NEGATIVE (NEGATIVE); BLOOD URINE NEGATIVE (NEGATIVE); COLOR YELLOW; GLUCOSE URINE NEGATIVE (NEGATIVE); KETONE URINE TRACE mg/dL (NEGATIVE); LEUKOCYTES URINE TRACE (NEGATIVE); NITRITE URINE NEGATIVE (NEGATIVE); PH URINE 5.5; PROTEIN URINE TRACE mg/dL (NEGATIVE); SP GRAVITY URINE 1.016; TURBIDITY URINE HAZY (CLEAR); UROBILINOGEN URINE 2 mg/dL (NORMAL)
[2019-02-20 19:54] LABS: UR EPITHELIAL CELLS <10 /HPF (<10); URINE BACTERIA NEGATIVE /HPF; URINE RBC <10 /HPF (<10); URINE WBC <10 /HPF (<10)
[2019-02-20 20:06] LABS: URINE CASTS GRANULAR PRESENT; URINE CRYSTALS NONE SEEN; URINE SMALL ROUND CELLS TRANS PRESENT; URINE YEAST NONE SEEN
[2019-02-20] MEDS ORDERED: NS 1,000 ML IV ONE ×2 (20:08→21:57)
--- NOTE | 2019-02-20 21:19 | Diag Imaging Result Doc PS360 ---
EXAM: CT ABD/PELVIS W/IV CONT ONLY 02/20/2019 HISTORY: DISTENTION, TENDERNESS TECHNIQUE: This exam was performed using automated exposure control, adjustment of mA or kV according to patient size, and/or use of iterative reconstruction technique. COMMENT: There is a left pleural effusion. This was not present at the time the previous study of 01/17/2019. There is also some atelectasis in the posterior costophrenic sulci of both lower lobes particularly on the left. There is ascites, worse compared to the previous study. There is nodularity of the liver surface consistent with cirrhosis. The gallbladder is without evidence of stones or wall thickening. The spleen is not enlarged. The adrenal glands are similar in appearance to the previous study. The pancreas is stable in appearance. There is no evidence of bowel obstruction. There is some stool in the right colon. There is retained barium or other hyperdense material in the descending colon. There are dense calcifications in the abdominal aorta. The infrarenal abdominal aorta is distended to 2.6 cm in greatest dimension. Compared to the previous examination this has not changed significantly. There are variceal collaterals the retroperitoneum on both sides. The kidneys are without evidence of hydronephrosis or mass. There is an apparent stone in the upper pole of the left kidney. There are number of cysts on the left. The portal vein is patent. There is no evidence of significant adenopathy. Pelvis: There is diverticulosis in the sigmoid colon without evidence of acute diverticulitis. There are no masses. There is gas and stool in the rectum. The urinary bladder is not distended. There is no evidence of acute bony abnormality. IMPRESSION: Cirrhosis with worsened ascites and new left pleural effusion. Electronically signed by Joseph Morris 02/20/2019 9:17 PM
[2019-02-20] MEDS ORDERED: ZOFRAN IV ONE (21:40)
[2019-02-20] MEDS ORDERED: ALBUMIN 25% IV ONE (21:52)
[2019-02-20] MEDS ORDERED: LASIX IV ONE (21:53)
[2019-02-20 23:20] LABS: INR 1.46
[2019-02-20 23:21] LABS: PTT 47.9 Seconds (22.3-41.8)
[2019-02-21 00:07] LABS: HEMOGLOBIN A1C 4.3 % (4.8-6.0)
[2019-02-21] MEDS ORDERED: LASIX PO PRN (06:09)
[2019-02-21] MEDS ORDERED: KLOR-CON PO ONE (06:16)
[2019-02-21] MEDS: MORPHINE IV PRN ×2 (06:46→21:15)
[2019-02-21] MEDS: ZOFRAN IV PRN ×2 (06:46→21:15)
[2019-02-21] MEDS ORDERED: PRILOSEC PO SCH (07:00)
[2019-02-21 07:05] LABS: BASO# 0.07 X1000 (0.0-0.2); EOS% 5.6 % (0.0-10.0); HEMATOCRIT 23.3 % (37.0-47.0); HEMOGLOBIN 7.9 g/dL (12.0-16.0); LYMPH# 1.54 X1000 (1.2-3.4); LYMPH% 43.3 % (20.5-51.1); MCH 34.6 PG (27-31); MCHC 33.9 g/dL (33-37); MCV 102.2 FL (81-99); MONO# 0.43 X1000 (0.11-0.59); MONO% 12.1 % (1.7-9.3); MPV 9.2 FL (7.4-10.4); NEUT# 1.32 X1000 (1.4-6.5); PLT 130 X1000 (130-400); RBC 2.28 XMIL (4.2-5.4); RDW 14.5 % (11.5-14.5); WBC 3.56 X1000 (4.8-10.8)
[2019-02-21 07:19] LABS: AGAP 13; BUN 5 mg/dL (8-22); CALCIUM 8.7 mg/dL (8.8-10.2); CHLORIDE 98 mmol/L (98-107); COSMO 262; CREATININE 0.6 mg/dL (0.5-0.9); ESTIMATED GFR > 60; GLUCOSE 75 mg/dL (70-104); POTASSIUM 3.1 mmol/L (3.5-5.1); SODIUM 133 mmol/L (136-145); TCO2 22 mmol/L (25-35)
[2019-02-21] MEDS: KLOR-CON PO SCH (08:30)
--- NOTE | 2019-02-21 08:56 | HISTORY AND PHYSICAL ---
CHIEF COMPLAINT: Abdominal pain and distention. HISTORY OF PRESENT ILLNESS: Ms. Mendoza is a 63-year-old female who has a past medical history of alcoholic cirrhosis, GERD and hypertension who has had increased abdominal pain. She reports nausea and vomiting. States her last bowel movement was 4 days ago. She denies fever or chills, shortness of breath or chest pain. We are attempting to get the imaging. She was sent here by her primary care provider for questionable small bowel obstruction. She had a CT of her abdomen and pelvis in the emergency room that showed cirrhosis with worsened ascites and new left pleural effusion. It did show diverticulitis and gas in rectum in the stool but it did not mention obstruction. At any rate, the patient will be admitted for GI consultation. PAST MEDICAL HISTORY: See HPI. PREVIOUS SURGICAL HISTORY: Denies. SOCIAL HISTORY: Current every day smoker. Drinks 2 glasses of vodka at night. Denies illicit drugs. FAMILY HISTORY: Mother from lung cancer. Grandmother from breast cancer. ALLERGIES: Codeine, penicillin and sulfa. HOME MEDICATIONS: 1. Ultram 50 mg p.o. q.6. 2. Lasix 20 mg p.o. daily p.r.n. 3. Lisinopril 20 mg p.o. daily. 4. Protonix 40 mg p.o. daily. 5. Potassium chloride 1 tablet p.o. daily. 6. Ranitidine 150 mg p.o. daily. 7. Spironolactone 50 mg p.o. daily. REVIEW OF SYSTEMS: Fourteen point review of systems conducted with the patient. Pertinent positives listed above in the HPI. All other systems reviewed and found to be negative. PHYSICAL EXAMINATION: VITAL SIGNS: Temperature 97.9 degrees, pulse 104, respirations 20, blood pressure 117/70, oxygen saturation 95% on room air. GENERAL: A 63-year-old female lying in the ER stretcher. Answers all questions appropriately. She is alert and oriented x3. HEENT: Head is atraumatic, normocephalic. Pupils equal, round and reactive to light. Extraocular eye movements intact. Sclerae mildly jaundiced. Conjunctivae pale. Oral mucosa is moist. NECK: Supple. No JVD, thyromegaly. Trachea is midline. No cervical lymphadenopathy. LUNGS: Clear to auscultation. No rhonchi, wheezes, rales. ABDOMEN: Tight, distended, diffusely tender to palpation. Positive fluid wave test. Bowel sounds hypoactive all 4 quadrants. EXTREMITIES: No cyanosis, clubbing or edema. 2+ pedal pulses bilaterally. GENITOURINARY: No bladder distention. Patient voids. Otherwise deferred. NEUROLOGICAL: Alert and oriented x3. Cranial nerves 2-12 grossly intact. DIAGNOSTIC DATA: CT of the abdomen and pelvis shows cirrhosis with worsened ascites and new left pleural effusion. LABORATORY DATA: WBC 5.22, hemoglobin 9.3, hematocrit 27.3, platelet count 144,000. INR is 1.46. Sodium 124, potassium 3.3, chloride 88, carbon dioxide 22, BUN 6, creatinine 0.8, glucose 139. ASSESSMENT AND PLAN: 1. Alcoholic cirrhosis with ascites. 2. Abdominal pain secondary to #1. 3. Hypertension. 4. GERD. 5. Hypokalemia. 6. Anemia of chronic disease. 7. Hyponatremia. PLAN: Admit patient to the medical floor. Consult GI. We will give 1 dose of albumin with Lasix. Defer to primary team need for paracentesis. Continue antihypertensives and Zantac as well as Protonix. We will continue her spironolactone and hold patient NPO. We will obtain imaging from her primary care provider related to small bowel obstruction. Further recommendations per patient's clinical course. Dictated by ARIANA Avalos for Renny Lopez MD cc: ARIANA Avalos MD Patient presenting with abdominal pain with distention and has a history of liver cirhosis. Noted on abdominal CT to have ascites. I agree with the assessment and plan of the ARIANA. Dr. Lopez. [facility]
[2019-02-21] MEDS ORDERED: ZANTAC PO SCH (09:00)
[2019-02-21] MEDS ORDERED: PRINIVIL PO SCH (09:00)
[2019-02-21] MEDS ORDERED: ALDACTONE PO SCH (09:00)
--- NOTE | 2019-02-21 11:17 | PROGRESS NOTE ---
DATE: 02/21/2019 SUBJECTIVE: Ms. Mendoza was admitted yesterday, 02/20/2019, came in with abdominal pain and distention. She is followed by ARIANA Matthew, and saw him last week apparently. Past medical history of alcoholic cirrhosis, gastroesophageal reflux disease, hypertension, and she came in with increased abdominal pain, nausea, vomiting. Last bowel movement was about 4 days ago. Denies any fever, chills, shortness of breath or chest pain. Sent here by primary care physician with questionable small bowel obstruction. CT of her abdomen and pelvis in the ER showed cirrhosis, worsening ascites, new left pleural effusion. It did show diverticulitis and gas in the rectum and stool, but did not mention obstruction. She says she is still pretty uncomfortable. Her abdomen does not appear tight, and no particular focal tenderness appreciated. OBJECTIVE: Vital Signs: Temperature 98.2 degrees, pulse 94, respirations 20, blood pressure 111/53. Eyes: Pupils are equal and round. Lungs: Lungs are clear in all lung rao. Cardiovascular exam: Regular rhythm and rate without murmur or S3. ASSESSMENT AND PLAN: 1. Alcoholic cirrhosis with ascites, abdominal pain I think secondary to general ascites. I do not see any evidence of peritonitis at this point. Dr. Jimenez, Gastroenterology, is following. She got 1 dose of albumin and Lasix yesterday, and I guess the decision whether she would benefit from paracentesis. 2. Hypertension. 3. Gastroesophageal reflux disease. 4. Hypokalemia. 5. Anemia of chronic disease. 6. Hyponatremia. LABS: Sodium was 124; it is much better today at 133, potassium 3.1, BUN 5, creatinine 0.6. REVIEW OF HER ORDERS: She is getting morphine for pain 2 mg IV q. 3 hours p.r.n., Protonix 40 mg p.o. b.i.d., potassium chloride ER 20 mEq daily, spironolactone 50 mg p.o. daily. She received 25 g IV of albumin, normal saline at 125 mL an hour. cc: Benny Villagomez MD
[2019-02-21] MEDS: PROTONIX PO SCH ×2 (11:43→21:27)
[2019-02-21] MEDS ORDERED: ALDACTONE PO ONE (16:36)
[2019-02-21] MEDS ORDERED: LASIX PO ONE (16:37)
--- NOTE | 2019-02-21 17:12 | GASTROENTEROLOGY CONSULTATION ---
DATE: 02/21/2019 REASON FOR CONSULTATION: Ascites. HISTORY OF PRESENT ILLNESS: Ms Irene Mendoza is a 63-year-old woman with past medical history of tobacco abuse and decompensated alcoholic cirrhosis with ascites, recent hospitalization for GI bleed from esophageal ulcer found on EGD in December who presents with worsening abdominal distention, lower extremity edema, and weight gain. The patient was last seen in my office on 01/31/2019 at which time she was started on Aldactone 50 mg once daily. She continued to have worsening edema despite diuretics and was started on 40 mg of Lasix by her PCP in [place] last Monday. She says that she has not been urinating very much. She has not had a bowel movement in the last two days. She denies any hematemesis or melena. She does report some nausea and vomiting with mucus at home. She has not been compliant with a low salt diet and has had ham sandwiches and soup. She is not on any NSAIDs or blood thinners. Her last drink of alcohol was three weeks ago. She denies any confusion or jaundice. REVIEW OF SYSTEMS: As per HPI, otherwise 12 point review of systems negative. PAST MEDICAL HISTORY: As per HPI. Other medical history includes Schatzki's ring, portal hypertensive gastropathy, anemia, and renal mass. Tobacco abuse. PAST SURGICAL HISTORY: None. HOME MEDICATIONS: Lasix 40 mg daily, Aldactone 50, Protonix 40 mg b.i.d., Ultram, potassium chloride, and lisinopril. ALLERGIES: Codeine, penicillin, and sulfa. FAMILY HISTORY: No family history of GI malignancies. SOCIAL HISTORY: She smokes 1/2 pack per day. She reports to me that her last drink of alcohol was three weeks ago. However, she reported to the nurse practitioner overnight that she drinks two glasses of vodka at night daily. No illicit drugs. PHYSICAL EXAMINATION: Vital Signs: Temperature 98.6 degrees, heart rate 90, respiratory rate 20, blood pressure 112/66, O2 saturation 95% on room air. General: Patient is chronically ill- appearing, no acute distress. HEENT: Sclerae anicteric. Moist mucous membranes. Extraocular movement intact. Neck: Supple. No JVD or lymphadenopathy. Cardiac: Regular rate and rhythm. No murmurs, rubs, or gallops. Lungs: Clear to auscultation bilaterally. Abdomen: Mildly distended, but soft, nontender. Bowel sounds are present. Some ascites. Extremities: With 1 to 2+ pitting edema. Neurologic: Nonfocal. No asterixis. LABORATORY DATA: White count of 3.5, hemoglobin is 7.9 from 9.3 yesterday, platelets of 130,000. INR yesterday of 1.46. Sodium of 133 from 124 yesterday, potassium 3.1, chloride of 98, bicarb 22, BUN of 5, creatinine 0.6. Hemoglobin A1c yesterday was 4.3. Calcium 8.7. LFTs with total bilirubin of 2.79, AST of 61, ALT of 22, alkaline phosphatase 84, ammonia of 42, total protein is 7.9, albumin of 3.3, lipase of 56. TSH is 2.7. UA showed trace protein and ketones, trace leukocytes, urobilinogen of 2. IMAGING: CT of the abdomen and pelvis showed cirrhosis with worsening ascites and a new left pleural effusion. ASSESSMENT AND PLAN: Ms. Irene Mendoza is a 63-year-old woman with a history of tobacco abuse and Schatzki's ring, esophageal ulcer, portal hypertensive gastropathy, and decompensated alcohol cirrhosis with ascites and anemia, who presents with worsening symptomatic ascites and hyponatremia. The patient reports to me that she has not been very compliant with a low salt diet and also has been drinking copious amounts of water. She has been taking Lasix apparently 20 mg. However, she reported to be 40 mg daily and Aldactone 50 mg daily. Overnight, she reports some improvement of her abdominal distention. She denies any GI bleeding or confusion or jaundice. Her LFTs are stable. Her hemoglobin dropped slightly overnight with IV fluids. Elevate INR. Thrombocytopenic. We will plan on restarting daily Lasix 40 mg and Aldactone 100 mg daily as well as a fluid restriction of 1500 mL per day. I do not recommend any further resuscitation with normal saline given volume overload and I would recommend holding her lisinopril in the setting of cirrhosis. We will continue to follow with you. Please call with any questions or concerns. # Decompensated ETOH cirrhosis # Ascites # Hyponatremia # Anemia # History of esophageal ulcer # Thrombocytopenia # Coagulopathy # Pleural effusion Thank you for this consult. [facility]
[2019-02-22 06:38] LABS: BASO# 0.03 X1000 (0.0-0.2); BASO% 0.7 % (0.0-0.8); EOS# 0.24 X1000 (0.0-0.7); EOS% 5.3 % (0.0-10.0); HEMATOCRIT 23.5 % (37.0-47.0); LYMPH# 2.09 X1000 (1.2-3.4); LYMPH% 46.3 % (20.5-51.1); MCH 34.6 PG (27-31); MCV 101.7 FL (81-99); MONO# 0.62 X1000 (0.11-0.59); MONO% 13.7 % (1.7-9.3); MPV 9.4 FL (7.4-10.4); NEUT# 1.53 X1000 (1.4-6.5); PLT 130 X1000 (130-400); RBC 2.31 XMIL (4.2-5.4); RDW 14.9 % (11.5-14.5); WBC 4.51 X1000 (4.8-10.8)
[2019-02-22 06:43] LABS: INR 1.53; PROTIME 18.7 Seconds (11.0-16.0)
[2019-02-22 07:04] LABS: AGAP 13; ALB/GLOB RATIO 0.7; ALBUMIN 2.9 g/dL (3.5-5.0); ALKALINE PHOSPHATASE 75 U/L (32-104); BUN 4 mg/dL (8-22); CALCIUM 8.9 mg/dL (8.8-10.2); CHLORIDE 99 mmol/L (98-107); COSMO 262; CREATININE 0.7 mg/dL (0.5-0.9); ESTIMATED GFR > 60; GLUCOSE 78 mg/dL (70-104); GOT 47 U/L (10-30); GPT 18 U/L (10-36); POTASSIUM 3.8 mmol/L (3.5-5.1); SODIUM 133 mmol/L (136-145); TCO2 21 mmol/L (25-35); TOTAL BILIRUBIN 1.89 mg/dL (0.20-1.00)
[2019-02-22] MEDS: MORPHINE IV PRN ×3 (08:24→20:52)
[2019-02-22] MEDS: ZOFRAN IV PRN (08:25)
[2019-02-22] MEDS: ALDACTONE PO SCH (08:30)
[2019-02-22] MEDS: KLOR-CON PO SCH (08:31)
[2019-02-22] MEDS: LASIX PO SCH (08:31)
[2019-02-22] MEDS: PROTONIX PO SCH ×2 (08:31→20:49)
--- NOTE | 2019-02-22 11:50 | PROVIDER PROGRESS NOTE ---
Progress Note S: No acute overnight events. Patient reports continued diffuse abdominal discomfort. No vomiting. +BM yesterday; however, reports constipation. She is having good urine output. No confusion, rectal bleeding, or melena. O: Last Vital Signs Temp 98.2 F 02/22/19 07:53 Pulse 96 H 02/22/19 07:53 Resp 20 02/22/19 07:53 BP 114/56 02/22/19 07:53 Pulse Ox 96 02/22/19 07:53 Height 5 ft 5 in Weight 128 lb GEN: awake, alert, NAD HEENT: anicteric, MMM, EOMI NECK: supple, no JVD PULM: CTAB anteriorly CV: RRR, no murmurs ABD: soft, minimally distended, BS present, mild TTP throught, flank dullness EXT: 1+ LE edema NEURO: nonfocal, no asterixis LABS: 02/22/19 02/22/19 02/22/19 05:42 05:42 05:42 WBC 4.51 L Hgb 8.0 L MCV 101.7 H Plt Count 130 INR 1.53 Sodium 133 L Potassium 3.8 D Chloride 99 Carbon Dioxide 21 L BUN 4 L Creatinine 0.7 Total Bilirubin 1.89 H AST 47 H ALT 18 Alkaline Phosphatase 75 C-Reactive Prot, Quant 9.86 Total Protein 7.0 Albumin 2.9 L ASSESSMENT AND PLAN: Ms. Irene Mendoza is a 63-year-old woman with a history of tobacco abuse Schatzki's ring, recent GI bleed from esophageal ulcer, portal hypertensive gastropathy, chronic macrocytic anemia, and decompensated alcohol cirrhosis with ascites and anemia who presented with worsening symptomatic ascites and hyponatremia. The etiology of her worsening ascites is likely from dietary non- compliance, copious fluid intake, and continued alcohol intake. She is t olerating diuresis with oral lasix 40 and aldactone 100mg daily. She is on a 1500 mL fluid restriction. Hgb stable. Hyponatremia improved. She continues to have some abdominal discomfort and endorses some constipation. Will start bowel regimen. Agree with primary team that diagnostic paracentesis is warranted given continued abdominal pain. # Decompensated ETOH cirrhosis - Ascites: continue lasix 40 and aldactone 100mg daily; low Na diet, fluid restriction, I/O; agree with diagnostic paracentesis - PSE: none prior - EV: no esophageal varices, repeat EGD in 1 year - HCC screening: no liver lesions, repeat US in 6 months - OLT: not a candidate for liver transplant given persistent ETOH abuse; addiction counselor on cessation # Hyponatremia: continue fluid restriction: trending # Esophageal ulcer: continue PPI PO BID # Chronic macrocytic anemia: stable; no overt bleeding; trending H/H # Constipation: started miralax and metamucil # Thrombocytopenia: 2/2 to cirrhosis Will follow with you. Please call with questions.
--- NOTE | 2019-02-22 12:20 | PROGRESS NOTE ---
DATE: 02/22/2019 SUBJECTIVE: This morning Ms. Mendoza refers to be doing fairly okay. According to her, this swelling over the lower extremity has significantly improved. She still has some generalized abdominal discomfort. No vomiting. No melena. OBJECTIVE: Vital signs: Blood pressure is 114/56, pulse of 93, respiration is 20, temperature is 98.2 degrees, patient is saturating 96% on room air. General exam: Ms. Mendoza is a 63-year-old, elderly female. She is in bed in no distress. HEENT: Mucosa is pink and moist. Anicteric. Acyanotic. Neck: Supple. Chest: There are some telangiectatic lesions on the upper chest wall. Respiratory System: Good air entry bilaterally. A few crepitations posteriorly. Cardiovascular: Regular rate and rhythm. I did not hear any murmurs or rubs. GI/Abdomen: Soft. It is distended. There is evidence of collateral circulation on the anterior abdominal wall, minimally tender on palpation diffusely. Bowel sounds are present. Extremities: Trace pedal edema. AERIAL GUNNER: Patient is awake, alert and oriented. There is no focal neurological deficit. CURRENT MEDICATIONS: Have all been reviewed. She is on 100 of Aldactone and 40 of Lasix p.o. INTAKE/OUTPUT: Urine output has been 1900. The patient is currently negative balance of 546 during the hospital course. LABORATORY DATA: WBC is 4.51, hemoglobin is 8.0, platelet count of 130. Chemistry is also reviewed. The patient's previous endoscopy revealed a single ulcer found at the gastroesophageal junction with slight oozing. There was also evidence of portal hypertensive gastropathy. ASSESSMENT: 1. Abdominal pain on presentation. The patient continues to be slightly tender on palpation. We are going to do a diagnostic paracenteses to rule out spontaneous bacterial peritonitis. 2. Alcohol-induced cirrhosis of the liver complicated with ascites, portal hypertension and pancytopenia noted. 3. Chronic alcohol use and abuse. Patient has been counseled. 4. Hypertension, controlled. 5. Antismooth muscle antibody positive. PLAN: In general, I think Ms. Mendoza is doing a lot better. The swelling has significantly improved. She still continues to have some mild abdominal discomfort. We are going to do a bedside diagnostic paracentesis. Continue with her diuretic therapy. Hopefully, she will be discharged tomorrow if she continues to be medically stable. cc: Valdez Logan MD
[2019-02-22] MEDS: METAMUCIL PO SCH (14:32)
[2019-02-22] MEDS: MIRALAX PO SCH (14:40)
[2019-02-22 14:49] LABS: ALBUMIN BODY FLUID 0.9 g/dL; AMYLASE BODY FLUID 13 U/L; TOTAL PROT BODY FLUID 1.9 g/dL
[2019-02-22 15:06] LABS: BODY FLUID SOURCE ASCETIC FLUID; WBC BF 501 /cumm
--- NOTE | 2019-02-22 15:06 | OPERATIVE NOTE ---
PROCEDURE DATE: 02/22/2019 TIME OF PROCEDURE: About 1400 PROCEDURE: Diagnostic paracentesis. OPERATIVE REPORT: Ms Mendoza is a 63-year-old female who presented to the hospital because of cirrhosis of the liver complicated with ascites, was having some abdominal discomfort. A diagnostic paracentesis was recommended for to rule out SBP. The procedure was discussed with her. Risk factors and complications including bleeding, infection were all discussed with her and she voiced understanding and consented to do the procedure. Ultrasound was used to localize the deepest pocket on the right midabdomen. Subsequently the skin was draped in regular fashion. Chlorhexidine was used as the antiseptic agent. 1% lidocaine was also used as the local anesthetic agent. Subsequently a little niche was made under the skin. The paracentesis trochar was advanced under negative pressure until ascitic fluid was obtained. Subsequently about 70 mL of fluid was removed. It looks felisa yellowish clear, was removed without any complication. Fluid was sent for analysis. The paracentesis trocar was subsequently removed and local gauze was placed on the site. Ms Mendoza tolerated the procedure. There was very minimum blood loss. Will be waiting on the results to rule out SBP. cc: Valdez Logan MD
[2019-02-22 15:07] LABS: MONOS 93 %; POLYS 7 %
[2019-02-23] MEDS: MORPHINE IV PRN ×2 (03:01→09:08)
[2019-02-23 06:51] LABS: HEMATOCRIT 24.2 % (37.0-47.0); HEMOGLOBIN 8.2 g/dL (12.0-16.0); MCH 34.5 PG (27-31); MCHC 33.9 g/dL (33-37); MCV 101.7 FL (81-99); MPV 9.1 FL (7.4-10.4); RBC 2.38 XMIL (4.2-5.4); RDW 14.9 % (11.5-14.5); WBC 4.09 X1000 (4.8-10.8)
[2019-02-23 07:17] LABS: AGAP 13; ALB/GLOB RATIO 0.7; ALKALINE PHOSPHATASE 73 U/L (32-104); BUN 5 mg/dL (8-22); CALCIUM 9.1 mg/dL (8.8-10.2); CHLORIDE 98 mmol/L (98-107); COSMO 265; CREATININE 0.7 mg/dL (0.5-0.9); ESTIMATED GFR > 60; GLUCOSE 84 mg/dL (70-104); GOT 51 U/L (10-30); GPT 19 U/L (10-36); POTASSIUM 3.9 mmol/L (3.5-5.1); SODIUM 134 mmol/L (136-145); TCO2 23 mmol/L (25-35); TOTAL BILIRUBIN 2.21 mg/dL (0.20-1.00); TOTAL PROTEIN 7.1 g/dL (6.3-8.3)
[2019-02-23 07:55] VITALS: BP 114/52
[2019-02-23] MEDS: MIRALAX PO SCH (09:09)
[2019-02-23] MEDS: KLOR-CON PO SCH (09:10)
[2019-02-23] MEDS: ALDACTONE PO SCH (09:10)
[2019-02-23] MEDS: METAMUCIL PO SCH (09:10)
[2019-02-23] MEDS: LASIX PO SCH (09:10)
[2019-02-23] MEDS: PROTONIX PO SCH (09:10)
--- NOTE | 2019-02-23 17:35 | DISCHARGE SUMMARY ---
ADMISSION DATE: 02/20/2019 DISCHARGE DATE: 02/23/2019 DISPOSITION: Home. FOLLOWUP: 1. Dr. Jimenez. 2. Mr. Albert Ochoa ARIANA. CONSULTATION: GI was consulted patient was seen by Dr. Jimenez. INVASIVE PROCEDURES DONE DURING THIS ADMISSION: Diagnostic paracentesis was done by tx. IMAGING STUDIES: A CT scan of the abdomen and pelvis did show cirrhosis with worsening ascites and new left pleural effusion. ADMISSION DIAGNOSES: 1. Alcoholic cirrhosis with ascites. 2. Abdominal pain. 3. Hypertension. 4. Gastroesophageal reflux disease, 5. Hypokalemia. DIAGNOSIS AT THE TIME OF DISCHARGE: 1. Abdominal pain on presentation, most likely due to ascites with underlying constipation. Spontaneous bacterial peritonitis was ruled out with diagnostic paracenteses. 2. Alcohol-induced cirrhosis of the liver complicated with ascites, portal hypertension, and pancytopenia. 3. Chronic alcohol use and abuse. 4. Hypertension. 5. Antismooth muscle antibody positive. Gastroenterology is aware. DISCHARGE MEDICATIONS: 1. Spironolactone 100 mg p.o. daily. 2. Furosemide 40 mg p.o. daily. 3. Metamucil 1 tablet p.o. daily. 4. MiraLAX 17 g p.o. daily. 5. Pantoprazole 40 mg p.o. b.i.d. PRESENTING COMPLAINT: Abdominal pain and distention. HISTORY OF PRESENTING COMPLAINT: Ms Mendoza is a 63-year-old, female with a history of alcohol use and abuse, known to have cirrhosis of the liver, came to the emergency department because of abdominal pain and distention. A CT scan was done which showed worsening ascites. Ms Mendoza was admitted for further medical care. HOSPITAL COURSE: Ms Mendoza was admitted to the medical floor. She was started on IV medication for pain control. She was also found to have constipation, so bowel regimen was instituted. She was seen by GI. A decision was made to do a diagnostic paracenteses at the bedside. This was done. About 70 mL of clear felisa color fluid was removed, which they analysis showed that the SAAG was more than 1.1 which consisted portal hypertension physiology secondary to cirrhosis of the liver. SBP was ruled out because of negative number of undiagnostic number of PMN. Ms. Arora could continued to show improvement. She did have a bowel movement during the hospital course and that made her feel better. She was also started on her diuretic therapy and she did tolerate that during the hospital course. This morning she was very eager to be discharged. She has already been seen by GI who according to her she has been told she can be discharged. From medical standpoint we think she is fairly stable to be discharged. She is going to be following up with Dr. Jimenez. We did discuss extensively about alcohol cessation since that is the source and the course of her current cirrhotic liver. TIME SPENT FOR DISCHARGE: 38 minutes. cc: MD Himanshu Joy MD Kevin [facility] Campbell
== END 2019-02-23 11:57 | disposition home or self-care (01) | DRG 433 ==
LOC: ED 17:05 → 4N 22:29 → SUATTDRO 22:29
PROVIDERS: ATTEND Internal Medicine